=== PATIENT | male | born 1945 | race Caucasian/White ===

== ENCOUNTER → 2017-01-19 | Outpatient (CLI) | payer MEDICARE, OTHER | LOC: GMAJ 14:50 | PROVIDERS: ATTEND Family Medicine | DX: Z12.5 Encounter for screening for malignant neoplasm of prostate (principal) ==

== ENCOUNTER → 2017-12-21 | Outpatient (CLI) | payer MEDICARE, OTHER ==
--- NOTE | 2017-12-21 12:20 | MRI ---
EXAM DESCRIPTION: Lumbar Spine w/o Contrast MRI. CLINICAL HISTORY: RADICULOPATHY COMPARISON: MRI lumbar spine 04/07/2014. TECHNIQUE: Multiplanar, multiple standard sequences, non contrast MRI, lumbar spine. FINDINGS: L5-S1: Diffuse Modic type II endplate reactive changes. Anterior disc bulge and bridging spurs larger to the left of midline. Moderate disc space loss with bilateral disc osteophyte encroachment on the foramina and posterior midline protrusion 5- 6 mm. Encroaching on the thecal sac and the left subarticular recess and descending left S1 nerve. Mild left paracentral canal stenosis. No significant change since the prior study. Bilateral mild facet arthrosis and ligament hypertrophy. L2-3: Disc desiccation and anterior bulging and endplate ridging with anterior and bilateral Modic type II endplate reactive changes. Schmorl's node superior L3 endplate. Posterior broad-based 5 mm disc bulge with right posterior 10 mm protrusion and inferior 6 mm extrusion encroaching on the thecal sac and the right subarticular recess and descending right L3 nerve. Mild to moderate canal stenosis. Bulging and herniation progressive since the prior study. Bilateral moderate foraminal narrowing. L4-5: Disc desiccation. Grade 1 retrolisthesis. Tiny posterior disc bulge. Bilateral flavum ligament hypertrophy and facet arthrosis. Borderline mild canal stenosis. This is progressed since the prior study. Bilateral moderate foraminal narrowing. L3-4: Disc desiccation and anterior bulging and endplate ridging. Trace retrolisthesis. Minimal right facet arthrosis. No facet and ligaments unremarkable. Moderate canal narrowing. Mild bilateral foraminal narrowing. Schmorl's node superior L4 endplate. L1-2: Disc desiccation with prominent anterior bulging and spur formation more to the right of midline. Anterior Modic type II endplate reactive changes. Posterior disc margin unremarkable. Mild bilateral facet arthrosis. Canal and foramina are patent. T12-L1: Disc desiccation with disc space preserved. Anterior Modic type II endplate reactive changes. Trace posterior disc bulge. Conus terminates at L1. Canal and foramina are patent. Posterior elements are unremarkable. Mild levoscoliosis. Paravertebral soft tissues are unremarkable.. Normal marrow signal in the remaining vertebral bodies and the posterior elements. Vertebral bodies are not compressed at any level. IMPRESSION: 1. Diffuse moderate spondylosis and significant disc space loss at L5-S1 with posterior midline disc protrusion encroaching on the thecal sac left subarticular recess and abutting the descending left S1 nerve. Bilateral disc osteophyte complex encroachment on the foramina. Correlate for bilateral L5 and left S1 radiculopathy. Stable since the prior study. 2. Moderate spondylosis at L2-3 with right disc posterior bulge and extrusion impinging the descending right L3 nerve with mild canal stenosis. This has progressed since the prior study. Bilateral foraminal narrowing. 3. L4-5 posterior disc bulge, hypertrophy of the posterior elements with borderline mild canal stenosis. This has progressed since the prior study. Electronically signed by: Kaushik Horn MD 12/21/2017 12:19 PM CDT
== END ==
LOC: MRI 09:00
PROVIDERS: ATTEND Physician Assistant
DX: M51.16 Intervertebral disc disorders with radiculopathy, lumbar region (principal); M51.17 Intervertebral disc disorders with radiculopathy, lumbosacral region; M47.897 Other spondylosis, lumbosacral region

== ENCOUNTER → 2018-06-01 | Outpatient (CLI) | payer MEDICARE, OTHER | LOC: GMAJ 10:59 | PROVIDERS: ATTEND Family Medicine | DX: Z12.5 Encounter for screening for malignant neoplasm of prostate (principal) ==

== ENCOUNTER → 2018-06-17 | Outpatient (CLI) | payer MEDICARE, OTHER ==
--- NOTE | 2018-06-17 17:22 | CT ---
EXAM DESCRIPTION: Lumbar Spine: Computed Tomography. CLINICAL HISTORY: M47.26 posterior fusion L2-L3 February 2018. COMPARISON: MRI lumbar spine December 21, 2017. TECHNIQUE: Spiral, axial 2.5 mm scans through the lumbarspine without contrast. Sagittal and coronal 2.0 mm Reconstructions. Total Exam DLP: 1667.22 mGy-cm. This exam was performed according to our departmental dose-optimization program which includes automated exposure control, adjustment of the mA and/or kV according to patient size and/or use of iterative reconstruction technique; to reduce radiation dose to as low as reasonably achievable (ALARA). FINDINGS: L2-3: Posterior transpedicular fusion with bilateral connecting rods and posterior cross-link. Hardware customary position and near-anatomic alignment. Interbody fusion device. Minimal subsidence into the superior L3 endplate. Partial ossification of the disc space. Minimal canal and foraminal narrowing but no stenosis. Bilateral facet arthrosis with posterior decompression. L5-S1: Significant disc space narrowing with calcification of the disc. Posterior disc bulge or herniation impressing on the thecal sac and the bilateral descending S1 nerves. Bilateral advanced facet arthrosis and foraminal stenosis. Partial left L5 laminectomy with moderate canal narrowing. L4-5: Posterior disc space loss. With minimal bulging. Posterior decompression. Left foraminal stenosis and near stenosis right foramen with bilateral facet arthrosis. L3-4: Posterior disc space loss. Disc bulge into the canal and both foramina. Moderate foraminal and canal narrowing. Spondylolysis of the left L3 pars interarticularis and spondylolysis versus fracture of the right L3 pars interarticularis. Posterior decompression. L1-2: Minimal disc space loss. Tiny posterior bulge. Bilateral facet arthrosis. Anterior bulging and spurs. No canal or foraminal stenosis. No significant scoliosis. Reduced lumbar lordosis. No compression type vertebral body fractures. IMPRESSION: 1. L2-3 posterior fusion construct customary position and near-anatomic alignment. Partial calcification of the disc space with interbody fusion device partial subsidence into the superior L3 endplate. No canal or foraminal stenosis. 2. Spondylolysis of the left L3 pars and fracture versus spondylolysis of the right L3 pars. No significant spondylolisthesis at L3-4. Moderate canal and foraminal narrowing. 3. Advanced spondylosis L5-S1 with calcification of the disc. Posterior disc bulge or herniation abutting the descending S1 nerves. Prior left partial laminectomy. Bilateral foraminal stenosis. 4. Posterior L4-5 disc bulge with posterior decompression. No foraminal stenosis and near stenosis of the right foramen. Facet arthrosis. No compression type vertebral body fractures at any level. Electronically signed by: Kaushik Horn MD 06/17/2018 5:20 PM CDT
== END ==
LOC: CT 09:00
PROVIDERS: ATTEND Neurological Surgery
DX: M47.26 Other spondylosis with radiculopathy, lumbar region (principal); M51.26 Other intervertebral disc displacement, lumbar region; Z98.1 Arthrodesis status

== ENCOUNTER → 2019-03-09 | Outpatient (CLI) | payer MEDICARE, OTHER | LOC: GMATM 16:49 | PROVIDERS: ATTEND Nurse Practitioner Family | DX: M10.9 Gout, unspecified (principal) ==

== ENCOUNTER → 2019-05-13 | Outpatient (CLI) | payer MEDICARE, OTHER | LOC: RESP 10:22 | PROVIDERS: ATTEND Family Medicine | DX: I10 Essential (primary) hypertension (principal); I50.22 Chronic systolic (congestive) heart failure ==

== ENCOUNTER → 2019-12-12 | Outpatient (CLI) | payer MEDICARE, OTHER ==
--- NOTE | 2019-12-12 08:57 | RAD ---
EXAM DESCRIPTION: Hip x-ray,Right 2 Views CLINICAL HISTORY: 74 years, Male, PAIN COMPARISON: None TECHNIQUE: AP and frog leg lateral views of the hip FINDINGS: 2 views of the right hip reveal no fracture or dislocation. No lytic bone lesion. Degenerative narrowing of the hip joint space is seen with spurring along the superolateral and inferior margins of the acetabulum. Frog-leg lateral view shows slightly mottled appearance of the femoral head which could be irregularity of the acetabular bone behind the femoral head or could be mild femoral head avascular necrosis. MRI may be helpful for further evaluation. IMPRESSION: Degenerative narrowing of the hip joint. See above. Electronically signed by: Murray Bonner MD 12/12/2019 8:56 AM CDT
--- NOTE | 2019-12-12 08:59 | RAD ---
EXAM DESCRIPTION: Pelvis x-ray one view CLINICAL HISTORY: 74 years Male, PAIN COMPARISON: None. FINDINGS: Single view x-ray study of the pelvis shows intact bones of the pelvic ring. Degenerative narrowing of the hip joints with spurring at the acetabular margins. Question mottled inhomogeneity of the femoral heads. If AVN is suspected MRI could be performed. The findings here are not definite. No collapse of the femoral head or subchondral microfracture. Sacrum appears intact. Degenerative narrowing of the SI joints. Moderate degenerative changes of the pubic symphysis. Surgical defects in the lower L-spine with spurring. IMPRESSION: Negative for fracture. Electronically signed by: Murray Bonner MD 12/12/2019 8:57 AM CDT
== END ==
LOC: RAD 08:13
PROVIDERS: ATTEND Orthopaedic Surgery
DX: M25.851 Other specified joint disorders, right hip (principal); M25.551 Pain in right hip

== ENCOUNTER → 2020-01-09 | Outpatient (CLI) | payer MEDICARE, OTHER ==
--- NOTE | 2020-01-09 11:09 | RAD ---
EXAM DESCRIPTION: Lumbar Spine 3 Views CLINICAL HISTORY: 74 years Male, LOW BACK PAIN COMPARISON: Concurrent MRI lumbar spine 01/09/2020. CT lumbar spine 06/17/2018. TECHNIQUE: 3 view radiograph of the lumbosacral spine. IMPRESSION: 5 lumbar type vertebral bodies. Posterior fusion construct at L2-L3 without radiographic evidence for hardware complication. No acute displaced fracture or compression deformity. Straightening of the lumbar spine which may be contributing to positioning and/or muscle spasm. Grade 1 retrolisthesis of L4 relative to L5 likely contributed by facet hypertrophy. Laminectomy performed at the lumbar spine.. Interbody implant centered in the L2-L3 disc space without subsidence. Electronically signed by: Hudson Mckeon MD 01/09/2020 11:08 AM CDT
--- NOTE | 2020-01-09 16:33 | MRI ---
EXAM DESCRIPTION: Lumbar Spine w/wo Contrast: Magnetic Resonance Imaging. CLINICAL HISTORY: LUMBAR RADICULOPATHY COMPARISON: MRI scan of the lumbar spine without contrast prior to hardware fusion surgery in December 2017. TECHNIQUE: Multiplanar, MRI, multiple standard sequences, without and with 1 mL per 5 kg body weight, Dotarem Gadolinium IV contrast, lumbar spine. No adverse reactions. FINDINGS: L5-S1: L5-S1 disc space is well identified on T2 axial series 501, image 3. Moderate endplate reactive changes on both endplates with anterior bridging osteophytes midline and left of midline and trace retrolisthesis. Posterior midline disc remnant and granulation tissue with posterior bulging abutting the thecal sac more to the left of midline and AP canal diameter 11 mm with interval posterior decompression since the prior study. Canal narrowing has decreased. Moderate to severe bilateral foraminal narrowing stable. No abnormal contrast enhancement. L4-L5: Disc desiccation and disc space loss with anterior bulging and endplate reactive changes mild and stable. Posterior decompression in the interval since the prior study with no stenosis. Bilateral facet hypertrophic arthrosis again seen. Bilateral foraminal narrowing more on the left stable since the prior study. No abnormal contrast enhancement. L3-L4: Disc desiccation with anterior hypertrophic spurs and narrowing more to the right of midline. Posterior disc bulge with hyperintense T2-weighted annular fissure in the midline. Interval posterior decompression since the prior study with no canal stenosis. Hypertrophic facet arthropathy again noted. Bilateral mild foraminal narrowing more on the right. No abnormal contrast enhancement. Posterior transpedicular fusion at L2-L3 level with unilateral connecting rods and cross-link. Interbody fusion device. Good positioning with Near-anatomic alignment. No fluid collection in the canal. Moderate endplate reactive changes. Interval Posterior decompression with no significant canal narrowing. Mild foraminal narrowing bilaterally more on the right. No abnormal contrast enhancement in the soft tissues around the hardware. L1-L2: Disc desiccation anterior bulging and endplate spurring more on the right of midline. Posterior elements unremarkable. Canal and foramina with no stenosis. Normal contrast enhancement. T12-L1. Disc desiccation with anterior moderate endplate reactive changes. No significant posterior bulging. Normal contrast enhancement. No stenosis of the canal or foramina. Normal enhancement in the soft tissues and disc. Conus terminates just below the disc space with normal enhancement. Minimal levoscoliosis. Included cord and conus with normal signal, size, and enhancement. Vertebral bodies are not compressed at any level. Normal marrow signal in the vertebral bodies and the posterior elements. No abnormal Contrast enhancement. Paravertebral soft tissues unremarkable..Perivertebral contrast enhancement normal. IMPRESSION: 1. Since the prior study, posterior transpedicular fusion bilaterally at the L2-L3 level with decompression and placement of interbody fusion device. No complications. Canal and foramina with no stenosis. Progressive spondylosis of the endplates. No abnormal contrast enhancement or fluid collection. 2. Multiple levels of dislocated discs, disc space loss, canal and foraminal narrowing. Bilateral moderate to severe foraminal narrowing or borderline stenosis at L5-S1 is stable along with spondylosis. No abnormal contrast enhancement. Electronically signed by: Kaushik Horn MD 01/09/2020 4:32 PM CDT
== END ==
LOC: MRI 10:00
PROVIDERS: ATTEND Orthopaedic Surgery
DX: Z01.812 Encounter for preprocedural laboratory examination (principal); M54.16 Radiculopathy, lumbar region; M43.16 Spondylolisthesis, lumbar region; M43.8X6 Other specified deforming dorsopathies, lumbar region; Z98.1 Arthrodesis status

== ENCOUNTER 2020-03-12 16:07 | Observation (INO) | payer MEDICARE, OTHER ==
[2020-03-12] MEDS ORDERED: SODIUM CHLORIDE 0.9% (FLUSH) 10 ML SYG IV PRN ×2 (16:10→20:27)
--- NOTE | 2020-03-12 16:11 | ED.PDOC ---
History of Present Illness - General Time Seen by Provider: 03/12/20 16:10 Source: patient, EMS - History of Present Illness Initial Comments: 74 yo male with PMH of HTN, a-fib on Eliquis who is bib EMS from home for cc of syncopal episode and chest pain, which occurred at home just [employer]. Patient states the last thing he recalls is walking in the house and next thing he recalls is waking up on the floor. His was in the house and heard him collapse to the ground and ran over and found him to be unconscious on the ground. He woke up after several seconds and has had normal mental status since then. However he complains of new onset pain in his chest which began once he woke up. Describes as constant, sore - "like someone hit me in the chest", 6/10 severity, radiates to the back, worse with palpation and deep breathing, not worse with exertion, no medications taken for relief. No history of similar symptoms in the past, no reported prior history of syncope. Reports history of A. fib but denies any history of ACS or coronary stents. He reports history of A. fib and has had 2 ablations in the past, the most recent being about 2 years ago. He states that he was scheduled for another ablation recently but due to bad weather the procedure was postponed to a later date. Also reports some epigastric pain. Reported initially some diaphoresis and clammy skin which is now resolved. Reports mild dyspnea. Denies any fevers, chills, cough, nausea/vomiting/diarrhea, leg swelling. Denies any alcohol, tobacco, or drug use. PCP is Dr. Parish and technical sales engineer is Dr. Fu at [facility]. Allergies/Adverse Reactions: Allergies NO KNOWN ALLERGY Allergy (Verified 02/28/14 07:00) Home Medications: Ambulatory Orders Amiodarone HCl 200 mg PO DAILY 03/12/20 Apixaban [Eliquis] 5 mg PO BID 03/12/20 Lasix Tab 80 mg PO DAILY 03/12/20 Metoprolol Succinate [Metoprolol Succinate ER] 25 mg PO BID 03/12/20 RX: Losartan Potassium 50 mg PO DAILY 03/12/20 Review of Systems - Review of Systems Review of Systems: 03/12/20 16:33 as per HPI All other Systems: Reviewed and Negative Past Medical History (General) - Patient Medical History Hx Cardiac Disorders: Yes Hx Congestive Heart Failure: No Hx Pacemaker: No Hx Hypertension: Yes Hx Diabetes: No Hx MRSA: No - Social History Hx Alcohol Use: No Hx Substance Use: No Hx Physical Abuse: No Hx Emotional Abuse: No Family Medical History - Family History Mother Family History: Unknown Physical Exam - Physical Exam General Appearance: Alert, No apparent distress Eye Exam: bilateral normal Ears, Nose, Throat: hearing grossly normal, normal ENT inspection, normal pharynx Neck: non-tender, full range of motion, supple, normal inspection Respiratory: lungs clear, normal breath sounds, no respiratory distress, no accessory muscle use, other - Moderate tenderness to palpation of anterior chest wall, reproduces chest pain symptoms Cardiovascular/Chest: normal peripheral pulses, no edema, no gallop, no JVD, no murmur, irregularly irregular Peripheral Pulses: radial,right: 2+, radial,left: 2+ Gastrointestinal/Abdominal: non tender, soft, no organomegaly, other - Diastases recti noted Back Exam: normal inspection, no CVA tenderness, no vertebral tenderness Extremity: normal range of motion, non-tender, normal inspection, no pedal edema, no calf tenderness, normal capillary refill, pelvis stable 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 Rates as 4/10 severity now. Labs are reviewed, pertinent for troponin 0.03 BNP 242, BUN 26, Cr 1.6. Remainder of labs pretty unremarkable. Lipase, lactate, WBC all within normal limits. -Patient now states he thinks he might have fallen forward and landed on his chest during the syncopal episode which is what is causing his chest pain symptoms. -We will give Pitman 10 p.o. x1 for pain. Continue to monitor in the ED and will repeat cardiac work-up at 2 hours. Anticipate admission for further observation. 03/12/20 19:03 -Repeat EKG & trop unchanged. Spoke with Afshan Hernandez who accepts the patient for further observation in the hospital. Ashwin Kelsey MD Billing #[id number] 03/12/20 16:10 IV Care:Saline Lock per Protoc QSHIFT Telemetry .ONCE Sodium Chloride 0.9% (Flush) [Saline Flush Syringe] 10 ml IV PRN PRN URINALYSIS Stat 03/12/20 16:15 EKG STAT 03/12/20 18:15 EKG STAT 03/13/20 09:00 Pulse Ox Daily Laboratory Results - last 24 hr 03/12/20 03/12/20 03/12/20 16:23 16:23 16:23 WBC 8.0 RBC 5.21 Hgb 14.9 Hct 44.3 MCV 85.0 MCH 28.6 MCHC 33.7 RDW 14.7 H Plt Count 165 MPV 8.4 Absolute Neuts (auto) 5.60 Absolute Lymphs (auto) 1.40 Absolute Monos (auto) 0.80 Absolute Eos (auto) 0.10 Absolute Basos (auto) 0.10 Neutrophils % 70.3 Lymphocytes % 17.9 L Monocytes % 9.8 H Eosinophils % 0.9 L Basophils % 1.1 D-Dimer, Quantitative Sodium 139 Potassium 4.0 Chloride 107 Carbon Dioxide 24 Anion Gap 12.0 BUN 26 H Creatinine 1.64 H BUN/Creatinine Ratio 15.9 Random Glucose 101 Serum Osmolality 282.4 Lactic Acid Calcium 9.3 Magnesium Total Bilirubin 1.0 AST 21 ALT 13 Alkaline Phosphatase 92 Troponin I 0.03 B-Natriuretic Peptide 242.0 H* Serum Total Protein 7.4 Albumin 4.0 Globulin 3.4 Albumin/Globulin Ratio 1.2 Lipase 39 03/12/20 03/12/20 03/12/20 16:23 16:23 16:23 WBC RBC Hgb Hct MCV MCH MCHC RDW Plt Count MPV Absolute Neuts (auto) Absolute Lymphs (auto) Absolute Monos (auto) Absolute Eos (auto) Absolute Basos (auto) Neutrophils % Lymphocytes % Monocytes % Eosinophils % Basophils % D-Dimer, Quantitative < 131 L Sodium Potassium Chloride Carbon Dioxide Anion Gap BUN Creatinine BUN/Creatinine Ratio Random Glucose Serum Osmolality Lactic Acid 1.3 Calcium Magnesium 2.1 Total Bilirubin AST ALT Alkaline Phosphatase Troponin I B-Natriuretic Peptide Serum Total Protein Albumin Globulin Albumin/Globulin Ratio Lipase 03/12/20 18:13 WBC RBC Hgb Hct MCV MCH MCHC RDW Plt Count MPV Absolute Neuts (auto) Absolute Lymphs (auto) Absolute Monos (auto) Absolute Eos (auto) Absolute Basos (auto) Neutrophils % Lymphocytes % Monocytes % Eosinophils % Basophils % D-Dimer, Quantitative Sodium Potassium Chloride Carbon Dioxide Anion Gap BUN Creatinine BUN/Creatinine Ratio Random Glucose Serum Osmolality Lactic Acid Calcium Magnesium Total Bilirubin AST ALT Alkaline Phosphatase Troponin I 0.03 B-Natriuretic Peptide Serum Total Protein Albumin Globulin Albumin/Globulin Ratio Lipase - EKG/XRAY/CT EKG: Atrial, Fibrillation - Heart rate 80, no ST elevations noted, possible Q waves in anteroseptal leads indicative of prior [place], slight left axis deviation, intervals normal, compared to 08/2013 EKG A. fib appears new. XRAY: chest - Per my read, cardiomegaly present with mild prominence of the pulmonary vascularity, no other acute processes noted Departure - Departure Clinical Impression: Syncope and collapse, Chest pain Time of Disposition: 19:03 Disposition: Admit Patient Condition: Fair Home Medications: Ambulatory Orders Amiodarone HCl 200 mg PO DAILY 03/12/20 Apixaban [Eliquis] 5 mg PO BID 03/12/20 Lasix Tab 80 mg PO DAILY 03/12/20 Metoprolol Succinate [Metoprolol Succinate ER] 25 mg PO BID 03/12/20 RX: Losartan Potassium 50 mg PO DAILY 03/12/20 Decision To Admit - Decistion To Admit Decision to Admit Reason: Admit from ER Decision to Admit Date: 03/12/20 Decision to Admit Time: 19:04
[2020-03-12] MEDS ORDERED: NITROGLYCERIN 0.4 MG 25 EA TAB SL ONE (16:27)
[2020-03-12] MEDS ORDERED: ASPIRIN (CHEWABLE) 81 MG TAB PO ONE (16:27)
[2020-03-12] MEDS ORDERED: HYDROcodone 10MG/APAP 325MG 1 EA TAB PO ONE (17:09)
--- NOTE | 2020-03-12 18:37 | RAD ---
EXAM: XR Chest, 1 View CLINICAL HISTORY: The patient is 74 years old and is Male; syncope TECHNIQUE: Frontal view of the chest. COMPARISON: Chest radiograph August 22, 2013. FINDINGS: LUNGS: Unremarkable. No consolidation. PLEURAL SPACE: Unremarkable. No pneumothorax. HEART: The cardiac silhouette is enlarged. MEDIASTINUM: Unremarkable. BONES/JOINTS: Unremarkable. VASCULATURE: Prominence of central vasculature is present. IMPRESSION: Cardiomegaly with findings suggestive of mild vascular congestion. Electronically signed by: Delisa Laurent MD 03/12/2020 6:36 PM CDT
[2020-03-12] MEDS ORDERED: NITROGLYCERIN 0.4 MG 25 EA TAB SL PRN (20:27)
[2020-03-12] MEDS ORDERED: MORPHINE SULFATE INJ 10 MG/ML VIAL IV PRN (20:27)
[2020-03-12] MEDS ORDERED: ACETAMINOPHEN 325 MG TAB PO PRN (20:27)
[2020-03-12] MEDS ORDERED: IV SET AND CAP CHANGE INJ INJ SCH (20:30)
[2020-03-12] MEDS ORDERED: ONDANSETRON INJ 4 MG/2 ML VIAL IV PRN (20:34)
[2020-03-12] MEDS: SODIUM CHLORIDE 0.9% (FLUSH) 10 ML SYG IV SCH (21:21)
[2020-03-12] MEDS: APIXABAN 5 MG TAB PO SCH (21:23)
[2020-03-12] MEDS: METOPROLOL TARTRATE 25 MG TAB PO SCH (21:23)
[2020-03-13] MEDS ORDERED: PANTOPRAZOLE SODIUM IV 40 MG VIAL IV SCH (06:30)
[2020-03-13] MEDS ORDERED: ASPIRIN (ENTERIC COATED) 81 MG TAB PO ONE (07:22)
[2020-03-13] MEDS ORDERED: FUROSEMIDE 40 MG TAB ONE (07:22)
[2020-03-13] MEDS ORDERED: AMIODARONE HCL 200 MG TAB ONE (07:22)
[2020-03-13] MEDS ORDERED: LOSARTAN POTASSIUM 25 MG TAB ONE (07:23)
[2020-03-13] MEDS ORDERED: AMIODARONE HCL 200 MG TAB PO SCH (09:00)
[2020-03-13] MEDS ORDERED: LOSARTAN POTASSIUM 25 MG TAB PO SCH (09:00)
[2020-03-13] MEDS ORDERED: FUROSEMIDE 40 MG TAB PO SCH (09:00)
[2020-03-13] MEDS ORDERED: ASPIRIN (CHEWABLE) 81 MG TAB PO SCH (09:00)
[2020-03-13] MEDS: APIXABAN 5 MG TAB PO SCH (09:17)
[2020-03-13] MEDS: METOPROLOL TARTRATE 25 MG TAB PO SCH (09:17)
[2020-03-13] MEDS: SODIUM CHLORIDE 0.9% (FLUSH) 10 ML SYG IV SCH (09:18)
[2020-03-13 13:07] VITALS: BP 124/78; TEMP 97.7; O2SAT 97
--- NOTE | 2020-03-13 13:14 | SSS ---
SUPERVISING PHYSICIAN: Nick Kendrick MD DATE OF ADMISSION: 03/12/20 DATE OF DISCHARGE: 03/13/20 CHIEF COMPLAINT: Chest pain and syncope. HISTORY OF PRESENT ILLNESS: This is a 74-year-old male patient who has a history of hypertension and atrial fibrillation on Eliquis. He was brought in by EMS from his home after complaining of a syncopal episode. It was unwitnessed, but according to the , she heard him collapse on the floor. He was unconscious at the time, but within a few seconds, he woke up. The patient said that just prior to his syncopal episode, he had some chest pain that was substernal in nature. It did not radiate. There was no diaphoresis. He does not remember collapsing, but he was worried it was his atrial fibrillation, so he came to the Emergency Room. He did fall on his chest when he fell at home and in the Emergency Room, his chest was hurting, but it was more musculoskeletal in nature. He was given nitroglycerin as well as [place] and there were no further complaints of chest pain. His initial vital signs showed temperature 99.3, heart rate 80, blood pressure 157/104 which came down to 122/88, respiratory rate 18, O2 saturation 95%. Labs were done. CBC was unremarkable. D-dimer was less than 131. Lactic acid 1.3. Electrolytes were basically within normal limits. Creatinine was slightly elevated at 1.64. His baseline creatinine is 1. BNP 242. Cardiac enzymes were negative. Chest x-ray showed cardiomegaly with findings suggestive of mild vascular congestion. He was placed in observation in the hospital. HOSPITAL COURSE: He had no further complaints of chest pain. This morning, an echocardiogram was done as well as a carotid ultrasound and MRI of the brain. There have been no neuro changes and no further complaints of dizziness or syncope, no chest pain and he will be discharged home in stable condition. LABORATORY: His followup lab showed CBC unremarkable. Chemistry was unremarkable. Serial cardiac enzymes were negative. There were no changes on his EKG. His echocardiogram, carotid ultrasound and MRI reports are pending. PAST MEDICAL HISTORY: 1. Hypertension. 2. Gout. 3. Atrial fibrillation with controlled rate and two ablations in the past. 4. Lumbar stenosis. 5. Congestive heart failure with an ejection fraction of 45% per his echocardiogram in 2019, systolic in etiology. PAST SURGICAL HISTORY: 1. Hernia repair. 2. Bilateral knee replacements. 3. Spine surgery. 4. Ablation x2. 5. Bilateral cataract surgery. ALLERGIES: COUMADIN, NSAIDs. SOCIAL HISTORY: He is . He lives in [place]. He has four children. He is retired. He quit smoking in 1971. He drinks alcohol on a social basis and he denies any illicit drug use. REVIEW OF SYSTEMS: As per history of present illness. PHYSICAL EXAMINATION: VITAL SIGNS: Temperature 98.7, heart rate 78, blood pressure 125/79, respiratory rate 18, O2 saturation 95% on room air. GENERAL: This is a 74-year-old male patient who is slightly obese. He is in no acute distress. HEENT: Normocephalic, atraumatic. Pupils are equal and reactive. Oropharynx is clear. NECK: Supple without mass. There is no discernible jugular venous distention. RESPIRATORY: Essentially clear to auscultation bilaterally. CARDIOVASCULAR: Regular rate and rhythm. GASTROINTESTINAL: Abdomen is soft, nondistended, nontender. Bowel sounds are positive. EXTREMITIES: No cyanosis, clubbing or edema. NEUROLOGIC: Awake, alert and oriented times three. Cranial nerves II-XII are grossly intact as tested. LABORATORY: Labs and films are as per history of present illness. DISCHARGE PLAN: The patient will be discharged home in stable condition. He is to resume his previous medications, diet and increase his activity as tolerated. He is to followup with Dr. Parish via Telehealth visit on 03/16/20 at 9:15 am. There have been no changes on his home medications. He did say he was out of his losartan and I called Dr. Parish' office to get the appropriate medications and I did send in a refill for his losartan 50 mg p.o. b.i.d. He is to return to the hospital or followup with Dr. Parish for any problems or complications. DISCHARGE MEDICATIONS: 1. Metoprolol. 2. Eliquis. 3. Losartan. 4. Lasix. 5. Amiodarone. #[id number] MTDD
--- NOTE | 2020-03-13 16:01 | MRI ---
EXAM DESCRIPTION: Brain w/oContrast CLINICAL HISTORY: 74 years Male, syncope with loc COMPARISON: None available. TECHNIQUE: Multiplanar multiecho imaging of the brain was performed without the administration of intravenous contrast. FINDINGS: Minimal periventricular white matter ischemia and mild diffuse cortical volume loss. No acute major vascular territorial infarct or acute intraparenchymal hemorrhage. No intra-axial or extra-axial fluid collections are identified. The cisterns and ventricles appear normal in caliber. The sella and suprasellar regions demonstrate no gross abnormality. The structures of the posterior fossa are intact. The visualized paranasal sinuses and mastoid air cells appear normal. The globes are intact bilaterally. Review of the bones demonstrates no gross abnormality. IMPRESSION: No acute intracranial process. Electronically signed by: Brionna Trevino MD 03/13/2020 3:59 PM CDT
--- NOTE | 2020-03-14 08:12 | US ---
EXAM DESCRIPTION: Carotid Duplex: ULTRASOUND. CLINICAL HISTORY: 74 years Male syncope with LOC COMPARISON: MRI brain on the same visit. TECHNIQUE: Transcutaneous scanning utilizing erwin-scale and Doppler modes to evaluate the bilateral carotid systems and vertebral arteries. Percentage of diameter of stenosis or no stenosis recorded will be based upon NASCET criteria. FINDINGS: Peak systolic/end diastolic (CM-Sec) CCA Right 53/11 Left 44/10. ICA Right proximal 47/18, mid 45/13. Left proximal 36/11, Distal 58/22. Vertebral Right 27/9 Left 33/10. ECA (PS Only) Right 50 left 27. ICA/CCA peak systolic ratio: Right 0.9 Left 1.3 ICA/CCA end diastolic ratio: Right 1.6 Left 2.3 Vertebral arteries: antegrade flow. Comments: Spectral broadening in the bilateral mid and distal ICAs. Atherosclerotic calcification in the bilateral carotid bifurcations and proximal ICAs. IMPRESSION: 1. Doppler evaluation of the bilateral carotid systems and vertebral arteries shows no hemodynamically significant stenoses (less than 70%). 2. No significant amount of plaque in the carotid arteries bilaterally. Bilateral vertebral arteries showed antegrade-cephalad flow. Electronically signed by: Kaushik Horn MD 03/14/2020 8:11 AM CDT
== END 2020-03-13 12:20 | disposition home or self-care (01) ==
LOC: ER 16:07 → MS 20:09
PROVIDERS: ADMIT Nurse Practitioner Acute Care; ATTEND Nurse Practitioner Acute Care
DX: R07.89 Other chest pain (principal); R55 Syncope and collapse; I11.0 Hypertensive heart disease with heart failure; I50.9 Heart failure, unspecified; I48.91 Unspecified atrial fibrillation; M10.9 Gout, unspecified; M48.061 Spinal stenosis, lumbar region without neurogenic claudication; Z79.01 Long term (current) use of anticoagulants; Z79.899 Other long term (current) drug therapy; Z88.8 Allergy status to other drugs, medicaments and biological substances; Z96.653 Presence of artificial knee joint, bilateral; Z87.891 Personal history of nicotine dependence
CPT/HCPCS: 96374; A4216; 85379; 82553 ×2; 80053 ×2; 80061; 36415 ×4; 81001; 85025 ×2; 82550 ×2; 83690; 83735 ×2; 84443; 84484 ×4; 83880; 83605; 71045; 93880; 94760; 99285; 93306; 70551; 93005 ×4; G0378

== ENCOUNTER → 2020-05-31 | Outpatient (CLI) | payer MEDICARE, OTHER ==
--- NOTE | 2020-06-01 10:56 | MRI ---
EXAM DESCRIPTION: Thoracic Spine w/o Contrast: Magnetic Resonance Imaging. CLINICAL HISTORY: SPONDYLOSIS THORACIC REGION COMPARISON: MR cervical spine April 24. Chest radiograph March 12. TECHNIQUE: Multiplanar, multiple standard sequences, non contrast MRI, thoracic spine. FINDINGS: Disc space loss at several levels with disc desiccation: T2-T3, T3-T4, T5-T6 down to T9-T10. T2-T3 disc and T3-T4 disc bulging posteriorly and touching the cord. Bilateral uncinate spurs and near stenosis neuroforamen T3-T4 with bilateral facet arthrosis and disc bulging. No significant disc bulging at the other levels. Anterior mild endplate reactive changes T5-T6, T2-T3, T6-T7. Anterior prominent disc bulge and spur formation to the right of midline at T10-T11. Remaining discs with normal signal. Disc spaces are preserved. Canal and foramina are patent. Facet joints are unremarkable. Conus terminates below the T12-L1 disc space. Cord with normal signal, no compression. Mild lower thoracic dextroscoliosis. Paravertebral soft tissues paraspinal muscle atrophy. Hyperintense T1 and T2 circumscribed hemangiomas in the T8 vertebral body and the T2 vertebral body. Otherwise normal marrow signal in the remaining vertebral bodies and the posterior elements. Vertebral bodies are not compressed at any level. IMPRESSION: 1. Multiple levels of desiccated discs in the thoracic spine and some disc spaces are narrowed. T3-T4 disc bulging into the canal and bilateral foramina along with uncinate spurs resulting in significant canal or neural foraminal narrowing. Correlate for unilateral or bilateral T3 radiculopathy. 2. Endplate spondylosis at several levels. No compression type vertebral body fractures. Electronically signed by: Kaushik Horn MD 06/01/2020 10:55 AM CDT
== END ==
LOC: MRI 08:00
PROVIDERS: ATTEND Anesthesiology Pain Medicine
DX: M47.894 Other spondylosis, thoracic region (principal); M51.34 Other intervertebral disc degeneration, thoracic region; M51.84 Other intervertebral disc disorders, thoracic region; M25.78 Osteophyte, vertebrae

== ENCOUNTER → 2020-08-13 | Outpatient (CLI) | payer MEDICARE, OTHER | LOC: GMAJ 10:38 | PROVIDERS: ATTEND Family Medicine | DX: R41.9 Unspecified symptoms and signs involving cognitive functions and awareness (principal) ==